=== PATIENT | female | born 1945 | race Caucasian/White ===

== ENCOUNTER 2021-02-01 13:23 | Outpatient (RCR) | payer MEDICARE, SELFPAY | END 2021-04-16 09:19 | disposition home or self-care (01) | LOC: HO.WCC 13:23 | PROVIDERS: PCP Internal Medicine; Visit Provider Physician Assistant | DX: L97.822 Non-pressure chronic ulcer of other part of left lower leg with fat layer exposed (principal); T81.30XA Disruption of wound, unspecified, initial encounter; I10 Essential (primary) hypertension | CPT/HCPCS: 11042; 15271; 17250; 87071; 87205; 99212; Q4160 ==

== ENCOUNTER → 2021-02-18 10:40 | Outpatient (BNVA) | payer MEDICARE, SELFPAY | PROVIDERS: PCP Internal Medicine; Visit Provider Internal Medicine | DX: T81.31XA Disruption of external operation (surgical) wound, not elsewhere classified, initial encounter (principal); E78.00 Pure hypercholesterolemia, unspecified; I10 Essential (primary) hypertension | CPT/HCPCS: 99202 ==

== ENCOUNTER 2023-08-20 08:12 | Outpatient (RCR) | payer MEDICARE, SELFPAY | END 2023-09-22 09:00 | disposition home or self-care (01) | LOC: HO.WCC 08:12 | PROVIDERS: PCP Internal Medicine; Visit Provider Surgery | DX: S81.811A Laceration without foreign body, right lower leg, initial encounter (principal); W10.9XXA Fall (on) (from) unspecified stairs and steps, initial encounter; H61.23 Impacted cerumen, bilateral | CPT/HCPCS: 11042; 97597; 99212 ==